=== PATIENT | male | born 1995 | race Caucasian/White ===

== ENCOUNTER 2025-06-15 20:54 | Emergency (ER) | payer BC, SELFPAY ==
--- OUTSIDE RECORDS SUMMARY | 2025-06-15 20:55 | XMS_ITS | Clinical Summary ---
Author Organization [employer] [facility] [employer] Address [address] [place] [address] Care Team Providers Care Pool Table Operator Name Role Phone Ezio Garcia MD Primary Care Provider Allergies No known active allergies Medications MedicationSigDispense QuantityRefillsLast FilledStart DateEnd DateStatus hydrOXYzine HCL (ATARAX) 25 mg tablet Indications:Adjustment reaction with anxietyTake 1 Tablet (25 mg) by mouth every 6 hours if needed for Anxiety. 30 Tablet ctive Active Problems ProblemNoted DateDiagnosed DateFamily history of coronary artery disease in szxnmg2605/08/2022Hip impingement with labral tear04/14/2014Osteitis pubis 04/14/2014 Immunizations ImmunizationAdministration DatesNext DueAMB Influenza, IIV3 (Age >=3 years) Preserve Free (Flu Clinic Only)05/14/2011,04/25/2009MB Influenza, IIV3 (Age >=3 years)(Flu Clinic Only)04/05/2012MB Influenza, IIV4 PF (=>6 mos Flulaval,Fluzone Fluarix)(Flu Clinic Only)05/17/2014COVID-19 vaccine ([employer] 30mcg/0.3mL) 12YO+ BIVALENT PF, MDV17848EBU6803/18/1994,01/08/1994 DTaP11/05/1998,05/12/1995,05/26/1994HIB HbOC (HibTITER)11/26/1994,03/18/1994, 01/08/1994Hepatitis A (Peds)01/30/2006,04/28/2005Hepatitis B (Peds)05/26/1994, 01/08/1994,1993Human Papilloma Virus Qdaffso5701/05/2012Influenza, IIV3 (Age >=3 years)05/18/2013,05/24/2008,10/14/2007,04/28/2005,05/29/2003Influenza, IIV4 05/08/2022,04/24/2021,05/18/2016,05/16/2015MENINGOCOCCAL VACCINE 2 VIAL 2MO-55YO (MENVEO)01/05/2012MMR11/05/1998,11/26/1994Meningococcal Vaccine (Menactra) 04/28/2005Oral Polio Txelhmf4411/05/1998,05/26/1994,03/18/1994,01/08/1994 Pneumococcal Poly,23-Valent (Pneumovax)09/24/1998Td (Age >=7 Years)05/08/2022, 12/11/2004Tdap01/05/2012Typhoid (oral)04/22/2005Varicella Hwlkbky9301/26/2007, 07/12/1994Yellow Fever04/28/2005 Family History Medical HistoryRelationNameCommentsCoronary artery diseaseFatherCAD s/p stent Heart DiseaseMaternal GrandfatherHypertensionMaternal GrandfatherGood Health MotherHeart DiseasePaternal GrandfatherGood HealthSister 1Good HealthSister 2 Good HealthSister 3RelationNameStatusCommentsFatherAliveMaternal Grandfather Deceasedkidney failure, parathyroid cancerMotherAlivePaternal Grandfather Deceasedheart diseaseSister 1Sister 2Sister 3 Social History Tobacco UseTypesPacks/DayYears UsedDateSmoking Tobacco: NeverSmokeless Tobacco: Never Tobacco Cessation:Counseling Given: Not Answered Alcohol UseStandard Drinks/WeekCommentsYes5 (1 standard drink = 0.6 oz pure alcohol)PHQ-2AnswerDate RecordedPHQ-2 TOTAL WQVIB460/17/2022Social Connections AnswerDate RecordedFrequency of Communication with Friends and FamilyNot on file 07/07/2023lcohol UseAnswerDate RecordedHow often do you have a drink containing alcohol?How many drinks containing alcohol do you have on a typical day when you are drinking?How often do you have five or more drinks on one occasion?Financial Resource StrainAnswerDate Recorded Difficulty of Paying Living Knfocivy024ifficulty of Paying Living ExpensesNot on file07/03/2022Food InsecurityAnswerDate RecordedWorried About Running Out of Food in the Last Iufb811Transportation NeedsAnswerDate RecordedLack of Transportation (Medical)Housing StabilityAnswerDate RecordedUnable to Pay for Housing in the Last Enbh568Sex and Gender InformationValueDate RecordedSex Assigned at BirthNot on fileLegal SexMale 07/05/2012 5:30 AM CSTGender IdentityNot on fileSexual OrientationNot on file OccupationIndustryJob Start DateJob End DateStudentNot on fileNot on fileNot on file Last Filed Vital Signs Vital SignReadingTime TakenCommentsBlood Mpijvfgt199/72002/09/2023 10:07 AM CDT Coxwu265802/09/2023 10:07 AM RYSEbpgnnoiurz34.3 ??C (97.4 ??F)07/09/2022 7:52 AM CSTRespiratory Akiw805302/09/2023 10:07 AM CDTOxygen Vffmhcgtgs61%07/09/2022 7:52 AM CSTInhaled Oxygen Concentration--Ncvcxt31.3 kg (188 lb)02/09/2023 10:07 AM BLAEwsmqz746 cm (6' 2)07/09/2022 7:52 AM CSTBody Mass Index24.14007/09/2022 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 Plan of Treatment Health MaintenanceDue DateLast DoneCommentsHPV series for age 9-45 (2 - Male 3- dose series)Depression screening for age 12+05/08/2023 05/08/2022MI (ht and wt on same day) for age 18+, 05/08/2022, 12/29/2018COVID-19 vaccine series (2024- season)2025 05/08/2022, 04/24/2021, 09/27/2020Influenza Vaccine (#1)5107/08/2021, 04/24/2021, 05/18/2016, Additional history existsTetanus ohfyfus9505/08/2032 05/08/2022, 01/05/2012, 12/11/2004Hepatitis B series for 19+Poiixmtoc05/05/1994, 01/08/1994, 1993Pneumococcal series for age 6-49Aged Out09/24/1998No longer eligible based on patient's age to complete this topicHIV for age 15-65 Pkanagcfo90/17/2022Hepatitis C screening for age 18-91Hwfenzmlw27/17/2022 Procedures Procedure NamePriorityDate/TimeAssociated DiagnosisCommentsANTI HIV 1/2Routine 05/08/2022 2:38 PM CABINET WORKER Encounter for screening for HIV ANTI BERDmolgpu78/17/2022 2:38 PM CABINET WORKER Need for hepatitis C screening test from Last 3 Months or Most Recently Relevant to Health Maintenance Results * ANTI HCV (05/08/2022 2:38 PM CABINET WORKER)ComponentValueRef RangeTest MethodAnalysis TimePerformed AtPathologist SignatureHEPATITIS C ANTIBODYNon-Reactive Non-Jljlhdxm49/19/2022 8:01 PM CSTH. [facility] Comment:Antibodies to HCV not detected; does not exclude the possibility of exposure to HCV.Specimen (Source)Anatomical Location / LateralityCollection Method / VolumeCollection TimeReceived TimeBloodBLOOD SPECIMEN / Unknown Venipuncture / Jkhltfk2105/08/2022 2:38 PM CST05/08/2022 2:38 PM CABINET WORKER Narrative Authorizing ProviderResult TypeResult StatusJesteven Carrillo MDSEND OUTS Final ResultPerforming OrganizationAddressCity/State/ZIP CodePhone Number [facility] [address] * ANTI HIV 1/2 (05/08/2022 2:38 PM CABINET WORKER)ComponentValueRef RangeTest Method Analysis TimePerformed AtPathologist SignatureHIV-1/HIV-2 ANTIBODYNon-Reactive Non-Dmemuqqu39/19/2022 7:49 PM [facility]STR[facility] Comment:HIV-1 p24 and HIV-1/HIV-2 Ab not detected.Specimen (Source)Anatomical Location / LateralityCollection Method / VolumeCollection TimeReceived Time BloodBLOOD SPECIMEN / UnknownVenipuncture / Hnsxdzy8105/08/2022 2:38 PM CABINET WORKER 05/08/2022 2:38 PM CABINET WORKER Narrative Authorizing ProviderResult TypeResult StatusJesteven Carrillo MDSEND OUTS Final ResultPerforming OrganizationAddressCity/State/ZIP CodePhone Number [facility] [address] from Last 3 Months or Most Recently Relevant to Health Maintenance Insurance Care Teams Team MemberRelationshipSpecialtyStart DateEnd Date Ezio Garcia MD [address] [place] [address] PCP - GeneralFamily Pajaepif95/17/22
--- OUTSIDE RECORDS SUMMARY | 2025-06-15 20:55 | XMS_ITS | Clinical Summary ---
Author Organization [facility] Address [address], [place] [address] Care Team Providers Care Car Sealer Name Role Phone Donny St MD Primary Care Provider [phone] Source Comments You are receiving this document as you are listed as the primary care provider,follow-up provider, or the patient has been referred to you for consultation.This is in compliance with the Medicare and[employer] Health[employer]id EHR Incentive Program,which states Providers who transition their patient to another setting of careor provider of care or refers their patient to another provider of care shouldprovide summary care record for each transition of care or referral. [facility] Allergies No known active allergies Medications No known medications Active Problems No known active problems Social History Tobacco UseTypesPacks/DayYears UsedDateSmoking Tobacco: NeverSmokeless Tobacco: Never Tobacco Cessation:Counseling Given: Not Answered Sex and Gender InformationValueDate RecordedSex Assigned at BirthNot on file Legal UavQnak03/10/2012 4:57 AM CDTGender IdentityNot on fileSexual Orientation Not on file Last Filed Vital Signs Vital SignReadingTime TakenCommentsBlood Gtyjyzkp483/4912 1:00 AM MEDICAL ASSOCIATE Yqjqm582605/27/2022 1:00 AM NIZPmlblcleolx26.8 ??C (98.3 ??F)05/26/2022 7:13 PM CSTRespiratory Wwzt551407/28/2021 1:00 AM CSTOxygen Burizjtjrd32%05/27/2022 1:00 AM CSTInhaled Oxygen Concentration--Tebagq92.9 kg (185 lb)04/18/2022 9:54 AM CDT Aukdji198 cm (6' 2)04/18/2022 9:54 AM CDTBody Mass Index23.7504/18/2022 9:54 AM CDT Plan of Treatment Health MaintenanceDue DateLast DoneCommentsHep C Screening (Preventive Services) 1993Adult Preventive Visit11/17/2011HPV Vaccine (2 - Male 3-dose series) HepB Vaccine (1)2012COVID-19 Vaccine (3 - season)511/08/2020, 09/27/2020Influenza Vaccine (#1)2025 05/08/2022, 04/24/2021, 05/18/2016, Additional history existsDTaP/Tdap/Td Vaccine (8 - Tdap)2107/08/2021, 01/05/2012, 12/11/2004, Additional history existsZoster/Shingles Vaccine (1 of 2)11/17/2043Hib VaccineCompleted 11/26/1994, 03/18/1994, 01/08/1994Pneumococcal VaccineAged Out09/24/1998No longer eligible based on patient's age to complete this topicIPV (Polio) Vaccine Zwiberjuu73/17/1999, 05/26/1994, 03/18/1994, Additional history existsHepA MdqptyyOzrylphjg36/11/2006, 04/28/2005MCV4 ZpsfjdyIjkbqfozr48/16/2012, 04/28/2005HIV Screening (Preventive Services)Eifyeoiah57/17/2022Meningococcal B VaccineAged OutNo longer eligible based on patient's age to complete this topic Insurance * Guarantor: J Carlos Cortez CAccount TypeRelation to PatientDate of BirthPhone Billing AddressPersonal/EcblqdGpfe19/28/[address] [place] [id number] Care Teams Team MemberRelationshipSpecialtyStart DateEnd Date Donny St MD [address] [place] [address] PCP - GeneralFamily Xjnrafbl53/28/22
[2025-06-15 21:03] VITALS: BP 154/74; PULSE 85; RESP 18; TEMP 36.7; O2SAT 99; BMI 24.4
--- NOTE | 2025-06-15 21:06 | ED_ITS ---
HPI - Wound/Laceration General Time Seen by Provider: 21:06 Date Seen: 06/15/25 Chief Complaint: Laceration/Wound Stated Complaint: L index finger laceration Time Seen by Provider: 06/15/25 21:06 Source: patient Mode of arrival: ambulatory Limitations: no limitations History of Present Illness HPI narrative: 29-year-old male who presents today with left index finger laceration. Patient was moving mobile table that unfolded and crushed his left index and middle fingers. He is primarily concerned about a laceration on his left index finger. Tetanus shot is up-to-date. Related Data Home Medications ?Medication ?Instructions ?Recorded ?Confirmed No Known Home Medications 06/15/2505/23 Allergies Allergy/AdvReac Type Severity Reaction Status Date / Time No Known Drug Allergies Allergy Verified 06/15/25 21:06 Exam Narrative: Exam Narrative: General: well nourished , NAD Head: Atraumatic and normocephalic ENT: External ears and external nose are normal Eyes: Conjunctiva clear, pupils are equal reactive, external ocular motions are intact Neck: Full spontaneous range of motion of the neck Lungs: No respiratory distress Musculoskeletal: No tenderness or deformity Neurologic: No gross focal neurologic deficits Skin: No rashes, curvilinear laceration on the dorsum of the left ears index finger appeared middle phalanx measuring 2 cm, to acute very much on the palmar surface of the middle phalanx of the index finger there is a 5 mm laceration. Abrasion and swelling overlying the left middle finger PIP joint Psych: Mood and affect are appropriate Const: Vital Signs, click to edit/add: Vital Signs - 24 hr 06/15/25 21:03 Temperature 98.0 F Pulse Rate [Right Pulse Oximeter] 85 Respiratory Rate 18 Blood Pressure [Ri ght Upper Arm] 154/74 H Pulse Oximetry 99 Oxygen Delivery Me thod Room Air Course Course ED Course: Additional records reviewed: None Additional history from: None Care impacted by: Testing considered but not performed: See ED course Disposition: Home Patient laceration of the left index finger sustained when moving a ping-pong table. On exam 2 cm curvilinear laceration on the dorsum left index finger middle phalanx along with a smaller laceration on the palmar surface. Digital block was performed, x-ray ordered. Digital block- left index finger. Landmarks identified, a 30 gauge needle was inserted on the medial and lateral aspects of the index finger and total 0 4 mL lidocaine 1% with epinephrine was injected. Patient tolerated this well. Reevaluation(s) Time of Reevaluation #1: 21:50 Reevaluation #1: Laceration repair- left index finger, middle phalanx dorsum, 2 cm. Risks benefi ts discussed the patient, verbal consent was obtained. Digital block was performed, area was cleansed with wound cleanser and explored, no foreign body seen and no tendon ingesting. Patient able to fully flex and extend at the MCP, DI P, and PIP joints. Laceration was closed with four -0 Ethilon simple interrupted sutures. The smaller 5 mm laceration on the palmar surface of the left index finger was closed with Dermabond. Patient tolerated this well, discussed wound care in stable for discharge. X-ray of the left hand mL interpreted by me without fracture. Vital Signs Vital signs: Initial Vital Signs Temperature 98.0 F 06/15/25 21:03 Temperature Source Temporal Artery Scan 06/15/25 21:03 Pulse Rate 85 06/15/25 21:03 Respiratory Rate 18 06/15/25 21:03 Blood Pressure 154/74 H 06/15/25 21:03 Blood Pressure Mean 100 06/15/25 21:03 Blood Pressure Position Sitting 06/15/25 21:03 Pulse Oximetry 99 06/15/25 21:03 Oxygen Delivery Method Room Air 06/15/25 21:03 Vital Signs Temperature 98.0 F 06/15/25 21:03 Pulse Rate 85 06/15/25 21:03 Respiratory Rate 18 06/15/25 21:03 Blood Pressure 154/74 H 06/15/25 21:03 Pulse Oximetry 99 06/15/25 21:03 Oxygen Delivery Method Room Air 06/15/25 21:03 Temperature 98.0 F 06/15/25 21:03 Pulse Rate 85 06/15/25 21:03 Respiratory Rate 18 06/15/25 21:03 Blood Pressure 154/74 H 06/15/25 21:03 Pulse Oximetry 99 06/15/25 21:03 Oxygen Delivery Method Room Air 06/15/25 21:03 Medications Administered Medications: Generic Name Dose Route Start Last Admin Trade Name Freq PRN Reason Stop Dose Admin Lidocaine/Epinephrine 20 ml 06/15/25 21:06 06/15/25 21:05 Lidocaine 1%-Epi 1:100,000 Mdbrigette INFILTRATI 06/15/25 21:07 20 ml ONCE ONE Administration Discharge Plan Discharge Clinical Impression: Laceration of left index finger Patient Disposition: Home, Self-Care Instructions: Laceration (DC) Additional Instructions: Wash gently with soap and water daily starting tomorrow evening Dressing and antibiotic ointment as desired Sutures should be removed in 7-10 days Activity Level: Activity as Tolerated Discharge Diet: Regular Prescriptions: No Action No Known Home Medications Follow Up/Referrals: Donny St MD [Primary Care Provider, Family Practice] Stand Alone Forms: [employer] [facility] [employer] Info Instructions
--- NOTE | 2025-06-15 21:18 | CRLHL7_ITS ---
For Patients: As a result of the Cures Act, medical imaging exams and procedure reports are released immediately into your electronic medical record. You may view this report before your referring provider. If you have questions, please contact your health care provider. INDICATION: Laceration left 2nd digit. TECHNIQUE: Left hand 3 views. COMPARISON: None. FINDINGS: No acute fractures or malalignment. Joint spaces are maintained. No retained radiopaque foreign body. IMPRESSION: No acute osseous abnormality. Dictated by Brayden Brand MD @ 06/15/2025 9:41:12 PM (Electronically Signed)
[2025-06-15 21:59] VITALS: BP 132/74; PULSE 80; RESP 18; TEMP 36.7; O2SAT 99
== END 2025-06-15 22:00 | disposition home or self-care (01) ==
PROVIDERS: Emergency Provider Family Medicine; PCP Family Medicine
DX: S61.211A Laceration without foreign body of left index finger without damage to nail, initial encounter (principal); S61.213A Laceration without foreign body of left middle finger without damage to nail, initial encounter; W23.0XXA Caught, crushed, jammed, or pinched between moving objects, initial encounter
CPT/HCPCS: 12001; 73130; 99283